=== PATIENT | female | born 1965 | race Caucasian/White ===

== ENCOUNTER 2016-10-07 09:39 | Outpatient (CLI) | payer OTHER ==
[2016-10-07 19:42] LABS: CHOL/HDL RATIO 5.6 (<4.4); CHOLESTEROL 214 mg/dL; HDL CHOLESTEROL 38 mg/dL; LDL/HDL RATIO 4.2 (<4.4); TRIGLYCERIDES 91 mg/dL; VLDL CHOLESTEROL 18 mg/dL
[2016-10-07 20:00] LABS: HEMOGLOBIN A1C 0.9 g/dL
== END 2016-10-07 09:40 | disposition home or self-care (01) ==
LOC: LAB.WCP 09:39
PROVIDERS: ATTEND Family Medicine
DX: E78.5 Hyperlipidemia, unspecified (principal); E11.65 Type 2 diabetes mellitus with hyperglycemia
CPT/HCPCS: 36415; 80061; 83036

== ENCOUNTER 2016-10-27 13:26 | Outpatient (CLI) | payer OTHER ==
[2016-10-27 20:33] LABS: THYROID STIMULATING HORMONE 0.62 uIU/mL (0.34-5.60)
== END 2016-10-27 23:59 | disposition home or self-care (01) ==
LOC: LAB.WCP 13:26
PROVIDERS: ATTEND Family Medicine
DX: N64.52 Nipple discharge (principal)
CPT/HCPCS: 36415; 84439; 84443; 84481

== ENCOUNTER 2016-12-01 10:41 | Outpatient (CLI) | payer OTHER ==
--- NOTE | 2016-12-01 17:06 | Mammography Report ---
DIGITAL BILATERAL DIAGNOSTIC MAMMOGRAM: 12/01/2016 CLINICAL INDICATION: Bilateral spontaneous clear nipple discharge, diffuse tenderness. TECHNIQUE: Bilateral CC, MLO, true lateral, spot magnification views. COMPARISON: 02/28/2011 The breasts demonstrate scattered fibroglandular densities bilaterally. No suspicious masses, cluste red microcalcifications, or regions of architectural distortion are identified. Specifically, no ret roareolar lesion is appreciated on either side. IMPRESSION: NEGATIVE EXAMINATION. RECOMMENDATION: ROUTINE ANNUAL SCREENING UNLESS OTHERWISE CLINICALLY INDICATED. BIRADS CATEGORY: 1, NEGATIVE. STANDARD QUALIFYING STATEMENTS 1. This examination was reviewed with the aid of Computed-Aided Detection (CAD). 2. A negative or benign imaging report should not delay biopsy if clinically suspicious findings are present. Consider surgical consultation if warranted. More than 5% of cancers are not identified b y imaging. 3. Dense breasts may obscure an underlying neoplasm. JOB #: [id number] EXT JOB #:[id number]
== END 2016-12-01 10:42 | disposition home or self-care (01) ==
LOC: DI 10:41
PROVIDERS: ATTEND Family Medicine
DX: N64.4 Mastodynia (principal)
CPT/HCPCS: 77066

== ENCOUNTER 2017-05-10 08:00 | Outpatient (CLI) | payer OTHER ==
[2017-05-10 12:39] LABS: BASOPHILS % (AUTO) 0.2 %; EOSINOPHILS # (AUTO) 0.2 10^3/uL (0.0-0.7); EOSINOPHILS % (AUTO) 1.9 %; HGB - HEMOGLOBIN 13.7 g/dL (12.0-16.0); LYMPHOCYTES # (AUTO) 2.8 10^3/uL (1.5-3.5); LYMPHOCYTES % (AUTO) 28.4 %; MEAN CORPUSCULAR HEMOGLOBIN 27.1 pg (27.0-31.0); MEAN CORPUSCULAR HGB CONC 34.6 g/dL (32.0-36.0); MEAN CORPUSCULAR VOLUME 78.4 fL (81.0-99.0); MEAN PLATELET VOLUME 8.2 fL (7.9-10.8); MONOCYTES # (AUTO) 0.5 10^3/uL (0.0-1.0); MONOCYTES % (AUTO) 5.4 %; NEUTROPHILS # (AUTO) 6.4 10^3/uL (1.5-6.6); NEUTROPHILS % (AUTO) 64.1 %; PLT - PLATELET COUNT 220 10^3/uL (130-450); RED BLOOD COUNT 5.06 10^6/uL (4.20-5.40); RED CELL DISTRIBUTION WIDTH 16.1 % (12.0-15.0)
[2017-05-10 12:58] LABS: ALBUMIN/GLOBULIN RATIO 1.2 (1.0-2.2); ALKALINE PHOSPHATASE 94 IU/L (42-121); ALT ALANINE AMINOTRANSFERASE 61 IU/L (10-60); AST ASPARTATE AMINOTRANSFERASE 34 IU/L (10-42); BILIRUBIN,TOTAL 0.3 mg/dL (0.2-1.0); BUN - BLOOD UREA NITROGEN 15 mg/dL (6-20); CARBON DIOXIDE - CO2 23 mmol/L (21-32); CHLORIDE 107 mmol/L (101-111); CHOLESTEROL 200 mg/dL; CREATININE 0.7 mg/dL (0.4-1.0); GFR - MDRD 89 (>89); GLUCOSE 189 mg/dL (70-100); HDL CHOLESTEROL 40 mg/dL; LDL CHOLESTEROL,CALCULATED 134 mg/dL; LDL/HDL RATIO 3.4 (<4.4); SODIUM 136 mmol/L (135-145); TOTAL PROTEIN 7.4 g/dL (6.7-8.2); VLDL CHOLESTEROL 26 mg/dL
[2017-05-10 13:03] LABS: HB2 TOTAL 14.8 g/dL; HEMOGLOBIN A1C 1.04 g/dL; HEMOGLOBIN A1C % 8.6 % (4.6-6.2)
== END 2017-05-10 08:01 | disposition home or self-care (01) ==
LOC: LAB.WCP 08:00
PROVIDERS: ATTEND Family Medicine
DX: E78.5 Hyperlipidemia, unspecified (principal); E11.65 Type 2 diabetes mellitus with hyperglycemia; I10 Essential (primary) hypertension; M79.7 Fibromyalgia
CPT/HCPCS: 36415; 80053; 80061; 82043; 83036; 83721; 85025

== ENCOUNTER 2017-09-26 19:57 | Observation (INO) | payer OTHER ==
[2017-09-26] MEDS ORDERED: IPRATROPIUM/ALBUTEROL 3 ML NEB INH STA ×2 (20:09→20:17)
[2017-09-26] MEDS ORDERED: predniSONE 20 MG TABLET PO STA (20:17)
[2017-09-26] MEDS ORDERED: TERBUTALINE 1 MG/ML VIAL SUBQ ONE (20:40)
[2017-09-26] MEDS ORDERED: MAGNESIUM SULFATE 2 GRAM 2 GM/50 ML BAG IV ONE (20:40)
[2017-09-26] MEDS ORDERED: ALBUTEROL NEB 2.5 MG/3 ML INH STA ×2 (20:40→21:15)
--- NOTE | 2017-09-26 21:17 | XRAY Report ---
Procedure Date: 09/26/2017 Accession Number: [id number] / [id number] Procedure: XR - Chest 1 View X-Ray CPT Code: 33105 FULL RESULT: EXAM: CHEST RADIOGRAPHY EXAM DATE: 09/26/2017 08:36 PM. CLINICAL HISTORY: Fever and shortness of breath. COMPARISON: 10/20/2016. TECHNIQUE: 1 view. FINDINGS: Lungs/Pleura: No focal opacities evident. No pleural effusion. No pneumothorax. Mediastinum: Within exam limitations, the cardiomediastinal contour is normal. Other: No bony abnormality identified. IMPRESSION: Normal single view chest. RADIA
[2017-09-26] MEDS ORDERED: AZITHROMYCIN 250 MG TABLET PO STA (21:23)
[2017-09-26] MEDS ORDERED: ACETAMINOPHEN 500 MG TABLET PO STA (21:35)
[2017-09-26 21:40] LABS: BASOPHILS % (AUTO) 0.6 %; EOSINOPHILS # (AUTO) 0.2 10^3/uL (0.0-0.7); EOSINOPHILS % (AUTO) 2.6 %; HGB - HEMOGLOBIN 12.3 g/dL (12.0-16.0); LYMPHOCYTES # (AUTO) 2.1 10^3/uL (1.5-3.5); LYMPHOCYTES % (AUTO) 27.2 %; MEAN CORPUSCULAR HEMOGLOBIN 26.7 pg (27.0-31.0); MEAN CORPUSCULAR HGB CONC 32.5 g/dL (32.0-36.0); MEAN CORPUSCULAR VOLUME 82.2 fL (81.0-99.0); MEAN PLATELET VOLUME 7.8 fL (7.9-10.8); MONOCYTES # (AUTO) 0.8 10^3/uL (0.0-1.0); MONOCYTES % (AUTO) 11.1 %; NEUTROPHILS # (AUTO) 4.4 10^3/uL (1.5-6.6); NEUTROPHILS % (AUTO) 58.5 %; PLT - PLATELET COUNT 176 10^3/uL (130-450); RED BLOOD COUNT 4.61 10^6/uL (4.20-5.40); RED CELL DISTRIBUTION WIDTH 17.5 % (12.0-15.0); WHITE BLOOD COUNT 7.6 x10^3/uL (4.8-10.8)
[2017-09-26 21:51] LABS: ALBUMIN 3.6 g/dL (3.2-5.5); BILIRUBIN,TOTAL 0.4 mg/dL (0.2-1.0); CALCIUM 8.6 mg/dL (8.5-10.3); CREATININE 0.6 mg/dL (0.4-1.0); TOTAL PROTEIN 7.3 g/dL (6.7-8.2)
--- NOTE | 2017-09-26 22:46 | ED Physician Documentation ---
PD HPI DYSPNEA - Stated complaint Stated Complaint: SOA/ASTHMA - Chief complaint Chief Complaint: Resp - History obtained from History obtained from: Patient, Family - History of Present Illness Timing - onset: Yesterday Timing - details: Gradual onset, Still present Associated symptoms: Fever, Cough, Wheezing Similar symptoms before: Work up / diagnostics Recently seen: Not recently seen - Additional information Additional information: Patient is a 52 year old female with a history of asthma who is a daily smoker who is presenting to the emergency department for shortness of breath and wheezing. patient states that it started yesterday and just got progressively worse. Patient tried her inhaler with little relief. patient reports that is likely secondary to the change in weather that is causing her symptoms. 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 Cardiovascular: Angioplasty - Present Medications Home Medications: Ambulatory Orders Medication Instructions Recorded Confirmed HYDROcod/ACETAM 5/325 [Vicodin 1 - 2 ea PO Q6H PRN #15 tablet 04/22/14 01/01/16 5/325] Metformin HCl 1,000 mg PO BIDWM 04/22/14 01/01/16 Metoprolol Tartrate 50 tab PO BID 04/22/14 01/01/16 QUEtiapine [SEROquel] 200 mg PO QPM 04/22/14 01/01/16 lamoTRIgine [Lamictal] 1 tab PO QPM 04/22/14 01/01/16 Amlodipine Besylate 10 mg PO DAILY 01/01/16 01/01/16 Gabapentin 100 mg PO DAILY 01/01/16 01/01/16 Gabapentin 300 mg PO QPM 01/01/16 01/01/16 HYDROcod/ACETAM 5/325 [[place] 5/325] 1 - 2 ea PO Q6H PRN 01/01/16 01/01/16 Insulin Glargine [Lantus Solostar] 17 unit SQ QPM 01/01/16 01/01/16 Insulin Glulisine [Apidra Solostar] 5 unit SQ TIDWM 01/01/16 01/01/16 Losartan Potassium 100 mg PO DAILY 01/01/16 01/01/16 Topiramate 50 mg PO DAILY PM 01/01/16 01/01/16 - Allergies Allergies/Adverse Reactions: Allergies Allergy/AdvReac Type Severity Reaction Status Date / Time felodipine Allergy Anaphylaxis Verified 09/26/17 20:05 - Social History Does the pt smoke?: Yes Smoking Status: Current every day smoker Does the pt drink ETOH?: No Does the pt have substance abuse?: No - Immunizations Immunizations are current?: Yes PD ED PE NORMAL - Vitals Vital signs reviewed: Yes - General General: Alert and oriented X 3 - HEENT HEENT: Atraumatic - Neck Neck: Supple, no meningeal sign - Cardiac Cardiac: RRR - Abdomen Abdomen: Soft - Derm Derm: Normal color, Warm and dry, No rash - Extremities Extremities: Normal ROM s pain, No calf tenderness / cord - Neuro Neuro: Alert and oriented X 3 Eye Opening: Spontaneous Motor: Obeys Commands Verbal: Oriented GCS Score: 15 PD ED PE EXPANDED - Respiratory Respiratory: Labored, Accessory mm use, Retractions, Wheezing, Right upper lobe , Right middle lobe, Right lower lobe, Left upper lobe, Left lower lobe Results - Vitals Vitals: Vital Signs - 24 hr 09/26/17 09/26/17 09/26/17 20:01 20:33 20:46 Temperature 36.5 C Heart Rate 97 87 93 Respiratory 24 12 12 Rate Blood Pressure 158/88 H O2 Saturation 90 L 09/26/17 09/26/17 09/26/17 21:22 22:05 22:10 Temperature Heart Rate 96 Respiratory 12 Rate Blood Pressure O2 Saturation 88 L 88 L 09/26/17 09/26/17 09/26/17 22:17 22:31 23:16 Temperature Heart Rate 94 93 Respiratory Rate Blood Pressure 141/80 H O2 Saturation 91 L 94 94 Oxygen O2 Source Nasal cannula Oxygen Flow Rate 1 - Labs Labs: Laboratory Tests 09/26/17 09/26/17 09/26/17 21:30 21:30 21:30 WBC 7.6 RBC 4.61 Hgb 12.3 Hct 37.9 MCV 82.2 MCH 26.7 L MCHC 32.5 RDW 17.5 H Plt Count 176 MPV 7.8 L Neut # (Auto) 4.4 Lymph # (Auto) 2.1 [place] # (Auto) 0.8 Eos # (Auto) 0.2 Baso # (Auto) 0.0 Absolute Nucleated RBC 0.00 Nucleated RBC % 0.0 Sodium 138 Potassium 3.6 Chloride 104 Carbon Dioxide 26 Anion Gap 8.0 BUN 9 Creatinine 0.6 Estimated GFR (MDRD) 105 Glucose 144 H Lactic Acid Calcium 8.6 Total Bilirubin 0.4 AST 27 ALT 43 Alkaline Phosphatase 104 Troponin I < 0.04 B-Natriuretic Peptide Total Protein 7.3 Albumin 3.6 Globulin 3.7 Albumin/Globulin Ratio 1.0 Lipase 34 09/26/17 09/26/17 21:30 21:30 WBC RBC Hgb Hct MCV MCH MCHC RDW Plt Count MPV Neut # (Auto) Lymph # (Auto) [place] # (Auto) Eos # (Auto) Baso # (Auto) Absolute Nucleated RBC Nucleated RBC % Sodium Potassium Chloride Carbon Dioxide Anion Gap BUN Creatinine Estimated GFR (MDRD) Glucose Lactic Acid 1.7 Calcium Total Bilirubin AST ALT Alkaline Phosphatase Troponin I B-Natriuretic Peptide 52 Total Protein Albumin Globulin Albumin/Globulin Ratio Lipase - Rads (name of study) chest x-ray Radiology: Final report received, EMP read contemporaneously (read as negative but appears as patchy infiltrates on the right) PD MEDICAL DECISION MAKING - ED course Complexity details: reviewed old records, reviewed results, re-evaluated patient , considered differential, d/w patient, d/w solar consultant ED course: Patient was seen and examined at bedside. Patient was treated with two duoneb treatments and prednisone. Patient had minimal improvement of her wheezing but did feel better. due to the history of fevers chest x-ray was ordered. Patient was treated with an additional 5mg of of albuterol, terbutaline and magnesium. Patient's chest x-ray was read as negative but there appeared to be patchy infiltrates. patient was started on azithromycin. Patient was still wheezing and hypoxic on room air and was treated with an additional 5mg of albuterol. After the treatments patient remained hypoxic (88%) on RA. hospitalist was contacted and the case was discussed with her. Patient was placed in observation for further evaluation and care. - Sepsis Event Vital Signs: Vital Signs - 24 hr 09/26/17 09/26/17 09/26/17 20:01 20:33 20:46 Temperature 36.5 C Heart Rate 97 87 93 Respiratory 24 12 12 Rate Blood Pressure 158/88 H O2 Saturation 90 L 09/26/17 09/26/17 09/26/17 21:22 22:05 22:10 Temperature Heart Rate 96 Respiratory 12 Rate Blood Pressure O2 Saturation 88 L 88 L 09/26/17 09/26/17 09/26/17 22:17 22:31 23:16 Temperature Heart Rate 94 93 Respiratory Rate Blood Pressure 141/80 H O2 Saturation 91 L 94 94 Oxygen O2 Source Nasal cannula Oxygen Flow Rate 1 Departure - Departure Disposition: ED Place in Observation Clinical Impression: Asthma, Pneumonia Condition: Stable
[2017-09-26] MEDS ORDERED: TEMAZEPAM 15 MG CAPSULE PO PRN (23:36)
[2017-09-26] MEDS ORDERED: SODIUM CHLORIDE FLUSH 0.9% 10 ML SYRINGE IVP PRN (23:36)
[2017-09-26] MEDS ORDERED: oxyCODONE 5 MG TABLET PO PRN (23:36)
[2017-09-26] MEDS ORDERED: D5.45NS W/20 MEQ KCL 1,000 ML IV SCH (23:45)
[2017-09-26] MEDS ORDERED: TOPIRAMATE 25 MG TABLET PO SCH (23:45)
--- NOTE | 2017-09-27 00:17 | HISTORY & PHYSICAL EXAMINATION ---
Chief Complaint - Chief Complaint Chief Complaint: Shortness of breath History of Present Illness - Admitted From Admitted From:: home - History Obtained From History obtained from: patient, ED physician - History of Present Illness HPI Comment/Other: Mrs. Yarelis Monge is a very pleasant 52-year-old female with a long history of asthma and tobaccoism who has had increasing difficulty with dyspnea and coughing over the last couple of months. She has been in the emergency room a couple of times and tonight came in after suffering another coughing fit in which she says she saw stars, and came close to passing out. On presentation to the emergency department a chest x-ray was done which was read as negative for any acute pathology however the patient has had increasing coughing spells and dyspnea and is now oxygen dependent. She will be admitted overnight for observation and to give her steroids and bronchodilators. 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 Mother of mouth cancer. Living arrangement: At home Living Situation: With spouse/s.o. - Substance History Use: Uses substance without health or social issues: Alcohol Use Issues: Other (Patient likely has COPD secondary to tobaccoism) Abuse: Recurrent use of substance despite neg consequences: NONE Dependence: Experiences withdrawal or developed tolerances: Tobacco Tobacco Details: Cigarettes - POLST Patient has POLST: No POLST Status: Full Code Meds/Allgy - Home Medications Home Medications: Ambulatory Orders Medication Instructions Recorded Confirmed HYDROcod/ACETAM 5/325 [Vicodin 1 - 2 ea PO Q6H PRN #15 tablet 04/22/14 01/01/16 5/325] Metformin HCl 1,000 mg PO BIDWM 04/22/14 01/01/16 Metoprolol Tartrate 50 tab PO BID 04/22/14 01/01/16 QUEtiapine [SEROquel] 200 mg PO QPM 04/22/14 01/01/16 lamoTRIgine [Lamictal] 1 tab PO QPM 04/22/14 01/01/16 Amlodipine Besylate 10 mg PO DAILY 01/01/16 01/01/16 Gabapentin 100 mg PO DAILY 01/01/16 01/01/16 Gabapentin 300 mg PO QPM 01/01/16 01/01/16 HYDROcod/ACETAM 5/325 [[place] 5/325] 1 - 2 ea PO Q6H PRN 01/01/16 01/01/16 Insulin Glargine [Lantus Solostar] 17 unit SQ QPM 01/01/16 01/01/16 Insulin Glulisine [Apidra Solostar] 5 unit SQ TIDWM 01/01/16 01/01/16 Losartan Potassium 100 mg PO DAILY 01/01/16 01/01/16 Topiramate 50 mg PO DAILY PM 01/01/16 01/01/16 - Allergies Allergies/Adverse Reactions: Allergies Allergy/AdvReac Type Severity Reaction Status Date / Time felodipine Allergy Anaphylaxis Verified 09/26/17 20:05 Review of Systems - Constitutional Constitutional: reports: Fatigue. denies: Fever, Chills, Malaise, Night sweats - Eyes Eyes: denies: Pain, Irritation, Amaurosis, Blurred vision, Dipolpia - Ears, Nose & Throat Ears, Nose & Throat: denies: Ear pain, Hearing loss, Hearing aids, Tinnitus, Vertigo, Nasal pain, Nasal discharge, Nosebleeds - Cardiovascular Cariovascular: denies: Irregular heart rate, Palpitations, Chest pain, Edema, Syncope - Respiratory Respiratory: reports: Cough, SOB at rest, SOB with exertion. denies: Sputum production, Wheezing, Hemoptysis, Orthopnea, Apnea - Gastrointestinal Gastrointestinal: denies: Abdominal pain, Abdominal distention, Constipation, Diarrhea, Change in bowel habits, Rectal bleeding - Genitourinary Genitourinary: denies: Dysuria, Frequency, Urgency, Hematuria - Musculoskeletal Musculoskeletal: denies: Muscle pain, Back pain, Muscle aches, Stiffness - Integumentary Integumentary: denies: Rash, Pruritis, Lesions, Dryness - Neurological Neurological: denies: General weakness, Focal weakness, Headache, Dizziness - Psychiatric Psychiatric: denies: Depression, Anxiety, Suicidal, Hallucinations - Endocrine Endocrine: denies: Polyuria, Polydypsia, Polyphagia - Hematologic/Lymphatic Hematologic/Lymphatic: denies: Anemia, Bruising, Petechiae, Lymphadenopathy - All Other Systems All Other Systems: reports: Reviewed and negative Exam - Vital Signs Reviewed Vital Signs: Yes Vital Signs: Vital Signs x48h Temp Pulse Resp BP Pulse Ox 09/26/17 23:16 94 09/26/17 22:31 93 141/80 H 94 09/26/17 22:17 94 91 L 09/26/17 22:10 88 L 09/26/17 22:05 88 L 09/26/17 21:22 96 12 09/26/17 20:46 93 12 09/26/17 20:33 87 12 09/26/17 20:01 36.5 C 97 24 158/88 H 90 L - Physical Exam General Appearance: positive: No acute distress, Alert Eyes Bilateral: positive: Normal inspection, PERRL, EOMI, No lid inflammation, Conjunctivae nml, No scleral icterus ENT: positive: ENT inspection nml, Pharynx nml, No signs of dehydration Neck: positive: Nml inspection, Thyroid nml, No JVD, Trachea midline. negative : Thyromegaly Respiratory: positive: Chest non-tender, No respiratory distress, Breath sounds nml. negative: Wheezes, Rales, Rhonchi Cardiovascular: positive: Regular rate & rhythm, No murmur, No gallop Peripheral Pulses: positive: 1+ Abdomen: positive: Non-tender, No organomegaly, Nml bowel sounds, No distention. negative: Guarding, Rebound Back: positive: Nml inspection. negative: CVA tenderness (R), CVA tenderness (L ) Skin: positive: Color nml, No rash, Warm, Dry. negative: Cyanosis Extremities: positive: Non-tender, Full ROM, Nml appearance, No pedal edema Neurologic/Psychiatric: positive: Oriented x3, CN's nml (2-12), Motor nml, Sensation nml, Mood/affect nml Conclusion/Plan - Problem List (1) Asthma Conclusion/Plan: The patient has had several acute exacerbations over the last several weeks and continues to smoke. I had a long discussion with her regarding smoking cessation and she says that she now realizes that she does not have a choice and must quit. We will continue with steroids, long-acting and short-acting, and bronchodilators [id number]. Qualifiers: Asthma complication type: with acute exacerbation (2) Tobacco dependence Conclusion/Plan: I had a long discussion with the patient regarding smoking cessation and she states that she is going to try to quit starting today. I ordered her a nicotine patch to help with this. (3) Type 2 diabetes mellitus Conclusion/Plan: We will continue patient on her long-acting insulin, metformin, and will order a sliding scale for coverage. Will obtain a hemoglobin A1c to check the patient 's compliance. (4) Bipolar 1 disorder Conclusion/Plan: We will continue the patient on her home medication dosing of gabapentin, Lamictal, Seroquel, and Topamax. (5) Hypertension Conclusion/Plan: We will continue the patient on amlodipine, losartan and metoprolol. - Lab Results Fish Bones: 09/26/17 21:30 09/26/17 21:30 - Diagnostic Imaging Results Diagnostic Imaging Results: positive: Final report reviewed Diagnostic Imaging Results Comments: FULL RESULT: EXAM: CHEST RADIOGRAPHY EXAM DATE: 09/26/2017 08:36 PM. CLINICAL HISTORY: Fever and shortness of breath. COMPARISON: 10/20/2016. TECHNIQUE: 1 view. FINDINGS: Lungs/Pleura: No focal opacities evident. No pleural effusion. No pneumothorax. Mediastinum: Within exam limitations, the cardiomediastinal contour is normal. Other: No bony abnormality identified. IMPRESSION: Normal single view chest. Core Measures - Anticipated LOS I expect patient to be DC'd or transferred within 96 hours.: Yes - DVT/VTE - Prophylaxis VTE/DVT Device ordered at admit?: Yes
[2017-09-27] MEDS ORDERED: NICOTINE 21 MG PATCH TOP STA (01:37)
[2017-09-27] MEDS ORDERED: BENZOCAINE/MENTHOL LOZENGE MM PRN (01:48)
[2017-09-27] MEDS ORDERED: guaiFENesin/DEXTROMETHORPHAN 10 ML UDC PO PRN (01:56)
[2017-09-27 02:13] LABS: HB2 TOTAL 13.4 g/dL
[2017-09-27] MEDS: SODIUM CHLORIDE FLUSH 0.9% 10 ML SYRINGE IVP SCH ×2 (02:16→08:30)
[2017-09-27] MEDS ORDERED: INSULIN GLARGINE 300 UNIT/3 ML PEN SUBQ ONE (03:34)
[2017-09-27] MEDS ORDERED: lamoTRIgine 100 MG TABLET PO ONE (03:35)
[2017-09-27] MEDS ORDERED: QUEtiapine 100 MG TABLET ONE (03:36)
[2017-09-27] MEDS ORDERED: INSULIN ASPART 300 UNIT/3 ML PEN SUBQ ONE (03:36)
[2017-09-27] MEDS ORDERED: GABAPENTIN 300 MG CAPSULE ONE (03:36)
[2017-09-27] MEDS: INSULIN ASPART 300 UNIT/3 ML PEN SUBQ SCH ×5 (03:39→13:18)
[2017-09-27] MEDS ORDERED: GABAPENTIN 100 MG CAPSULE ONE (03:42)
[2017-09-27] MEDS ORDERED: GABAPENTIN 300 MG CAPSULE PO SCH ×2 (04:00→09:00)
[2017-09-27] MEDS ORDERED: INSULIN GLARGINE 300 UNIT/3 ML PEN SUBQ SCH (04:00)
[2017-09-27] MEDS ORDERED: IPRATROPIUM/ALBUTEROL 3 ML NEB INH SCH (05:00)
[2017-09-27 07:03] LABS: HGB - HEMOGLOBIN 11.6 g/dL (12.0-16.0); MEAN CORPUSCULAR HEMOGLOBIN 26.7 pg (27.0-31.0); MEAN CORPUSCULAR HGB CONC 32.2 g/dL (32.0-36.0); MEAN PLATELET VOLUME 7.7 fL (7.9-10.8); RED BLOOD COUNT 4.34 10^6/uL (4.20-5.40); RED CELL DISTRIBUTION WIDTH 17.3 % (12.0-15.0); WHITE BLOOD COUNT 5.8 x10^3/uL (4.8-10.8)
[2017-09-27 07:10] LABS: CALCIUM 8.3 mg/dL (8.5-10.3); CREATININE 0.5 mg/dL (0.4-1.0)
[2017-09-27] MEDS ORDERED: metFORMIN 500 MG TABLET PO SCH (08:00)
[2017-09-27] MEDS ORDERED: AZITHROMYCIN 250 MG TABLET PO SCH (09:00)
[2017-09-27] MEDS ORDERED: METOPROLOL TARTRATE 50 MG TABLET PO SCH (09:00)
[2017-09-27] MEDS ORDERED: GABAPENTIN 100 MG CAPSULE PO SCH (09:00)
[2017-09-27] MEDS ORDERED: methylPREDNISolone SUCCINATE 40 MG/ML VIAL IVP SCH ×2 (09:00→14:00)
[2017-09-27] MEDS ORDERED: amLODIPine 5 MG TABLET PO SCH (09:00)
[2017-09-27] MEDS ORDERED: POLYETHYLENE GLYCOL 3350 17 GM PACKET PO SCH (09:00)
[2017-09-27] MEDS ORDERED: LOSARTAN 50 MG TABLET PO SCH (09:00)
[2017-09-27] MEDS ORDERED: ACETAMINOPHEN 325 MG TABLET PO PRN (10:13)
[2017-09-27] MEDS ORDERED: ALBUTEROL NEB 2.5 MG/3 ML INH PRN ×2 (10:18→11:11)
[2017-09-27] MEDS ORDERED: BUDESONIDE 0.5 MG/2 ML NEB INH SCH (11:00)
[2017-09-27 11:50] VITALS: BP 147/92
--- NOTE | 2017-09-27 12:53 | Discharge Plan ---
Discharge Plan Disposition: 01 Home, Self Care Condition: Poor Prescriptions: predniSONE [Deltasone] 20 mg PO [id number] #21 tab Diet: Regular Activity Restrictions: Activity as Tolerated Shower Restrictions: No (fall precaution) Weight Bearing: Full Weight Instruction Topics: Prednisolone tablets, Asthma, COPD Additional Instructions or Follow Up instructions: You may follow up your PCP in one week. Should your symptoms return or worsen, you may present ER or call 911 for help. No Smoking: If you smoke, Please STOP! Call for help. Follow-up with: Leyda Crawley MD [Primary Care Provider] -
--- NOTE | 2017-09-27 12:57 | DISCHARGE SUMMARY ---
Discharge Summary Discharge Date: 09/27/17 Discharging Provider: BOTELLO Primary Care Provider: Dr. Crawley Condition at Discharge: Poor Discharge Disposition: 01 Home, Self Care Discharge Facility Name: home - DIAGNOSES Admission Diagnoses: (1) Asthma (2) Tobacco dependence (3) Type 2 diabetes mellitus (4) Bipolar 1 disorder (5) Hypertension Discharge Diagnoses with Status of Each Condition: (1) Asthma exacerbation pt report her breath is much better, and request to be d/c to home. pt had 93% Sats on room air. No respiratory distress when ambulation. continue home medication regime and follow up with PCP (2) Tobacco dependence prescribe Nictotin Patch to pt (3) Type 2 diabetes mellitus stable, continue be managed by PCP. slight elevated glucose due to steroid usage. (4) Bipolar 1 disorder stable,continue be managed by PCP (5) Hypertension stable, continue be managed by PCP - HPI History of Present Illness: refer from Dr. Kaufman's HPI as the following: Mrs. Yarelis Monge is a very pleasant 52-year-old female with a long history of asthma and tobaccoism who has had increasing difficulty with dyspnea and coughing over the last couple of months. She has been in the emergency room a couple of times and tonight came in after suffering another coughing fit in which she says she saw stars, and came close to passing out. On presentation to the emergency department a chest x-ray was done which was read as negative for any acute pathology however the patient has had increasing coughing spells and dyspnea and is now oxygen dependent. She will be admitted overnight for observation and to give her steroids and bronchodilators. - ALLERGIES Allergies/Adverse Reactions: Allergies Allergy/AdvReac Type Severity Reaction Status Date / Time felodipine Allergy Anaphylaxis Verified 09/26/17 20:05 - MEDICATIONS Home Medications: Ambulatory Orders Medication Instructions Recorded Confirmed Metformin HCl 1,000 mg PO BIDWM 04/22/14 09/27/17 Metoprolol Tartrate 50 mg PO BID 04/22/14 09/27/17 QUEtiapine [SEROquel] 300 mg PO QPM 04/22/14 09/27/17 lamoTRIgine [Lamictal] 200 mg PO BID 04/22/14 09/27/17 Amlodipine Besylate 10 mg PO DAILY 01/01/16 09/27/17 Gabapentin 300 mg PO BID 01/01/16 09/27/17 Insulin Glargine [Lantus Solostar] 25 unit SQ 1700 01/01/16 09/27/17 Losartan Potassium 100 mg PO DAILY 01/01/16 09/27/17 Topiramate 50 mg PO DAILY PM 01/01/16 09/27/17 Albuterol Sulf [Ventolin Hfa 2 puffs INH Q4H PRN 09/27/17 09/27/17 Inhaler] Ezetimibe [Zetia] 10 mg PO QD 09/27/17 09/27/17 Fluticasone 110 Mcg [Flovent] 2 puffs INH BID 09/27/17 09/27/17 Insulin Aspart [Novolog Flexpen] 12 unit SUBQ TIDWM 09/27/17 09/27/17 Ipratropium/Albuterol [Duoneb] 3 ml INH Q6H PRN 09/27/17 09/27/17 Nicotine 21 mg Patch [Nicoderm] 1 each TOP Q24H #7 patch 09/27/17 SITagliptin [Januvia] 100 mg PO DAILY 09/27/17 09/27/17 predniSONE [Deltasone] 20 mg PO [id number] #21 tab 09/27/17 - PHYSICAL EXAM AT DISCHARGE General Appearance: positive: No acute distress, Alert. negative: Lethargic Eyes Bilateral: positive: Normal inspection, PERRL, No lid inflammation, Conjunctivae nml ENT: positive: ENT inspection nml, Pharynx nml, No signs of dehydration. negative: Purulent nasal drainage, Pharyngeal erythema, Oral lesions Neck: positive: Nml inspection, Thyroid nml, No JVD, Trachea midline. negative : Thyromegaly, Lymphadenopathy (R), Lymphadenopathy (L), Stiff neck, Carotid bruit, Swelling/bruising, Tracheal deviation Respiratory: positive: Chest non-tender, No respiratory distress, Breath sounds nml. negative: Wheezes, Rales, Rhonchi Cardiovascular: positive: Regular rate & rhythm, No murmur, No gallop. negative : Irregularly irregular, Extrasystoles, Tachycardia, Bradycardia, JVD present, Systolic murmur, Diastolic murmur Peripheral Pulses: positive: 2+ Abdomen: positive: Non-tender, No organomegaly, Nml bowel sounds, No distention. negative: Tenderness, Guarding, Rebound Back: positive: Nml inspection. negative: CVA tenderness (R), CVA tenderness (L ) Skin: positive: Color nml, No rash, Warm, Dry. negative: Cyanosis, Diaphoresis , Pallor Extremities: positive: Non-tender, Full ROM, Nml appearance. negative: Calf tenderness, Joint swelling, Kosta's sign/cords Neurologic/Psychiatric: positive: Oriented x3, Motor nml, Sensation nml, Mood/ affect nml. negative: Weakness, Sensory loss, Facial droop, Slurred/abnml speech, Depressed mood/affect - LABS Result Diagrams: 09/27/17 06:56 09/27/17 06:56 - FOLLOW UP Follow Up: You may follow up your PCP in one week. Should your symptoms return or worsen, you may present ER or call 911 for help. - TIME SPENT Time Spent in Discharge (Minutes): 40
[2017-09-27] MEDS ORDERED: LAMOTRIGINE PO SCH (21:00)
[2017-09-27] MEDS ORDERED: lamoTRIgine 100 MG TABLET PO SCH (21:00)
[2017-09-27] MEDS ORDERED: QUEtiapine 100 MG TABLET PO SCH (21:00)
== END 2017-09-27 14:18 | disposition home or self-care (01) ==
LOC: ED 19:57 → MS2 23:36
PROVIDERS: ADMIT Hospitalist; ATTEND Nurse Practitioner Gerontology
DX: J45.901 Unspecified asthma with (acute) exacerbation (principal); R09.02 Hypoxemia; F17.210 Nicotine dependence, cigarettes, uncomplicated; I10 Essential (primary) hypertension; E11.9 Type 2 diabetes mellitus without complications; F31.9 Bipolar disorder, unspecified; Z79.4 Long term (current) use of insulin; Z79.899 Other long term (current) drug therapy
CPT/HCPCS: 36415; 71045; 80048; 80053; 83036; 83605; 83690; 83880; 84484; 85025; 85027; 87040; 94640; 96361; 96365; 96372; 96375; 96376; 99218; 99283; 99284; A9270; J1815; J7512